=== PATIENT | female | born 1990 | race Caucasian/White ===

== ENCOUNTER 2017-10-26 04:56 | Emergency (ER) | payer OTHER ==
[~2017-10-26] VITALS: Ht 160 cm; Wt 61.3 kg
[2017-10-26 05:00] VITALS: BP 115/72
[2017-10-26] MEDS ORDERED: ALBUTEROL/IPRATROPIUM 2.5MG/0.5MG, 3 ML NPPB ONE (05:30)
[2017-10-26] MEDS ORDERED: ALBUTEROL/IPRATROPIUM 2.5MG/0.5MG, 3 ML ONE (05:33)
== END 2017-10-26 06:07 | disposition home or self-care (01) ==
LOC: ED 05:37
DX: J45.31 Mild persistent asthma with (acute) exacerbation (principal)
CPT/HCPCS: 93005; 94640; 99283; J7620

== ENCOUNTER 2019-01-02 19:55 | Outpatient (CLI) | payer OTHER ==
[2019-01-02 20:25] VITALS: BP 104/64
[2019-01-02 20:47] LABS: MICROSCOPIC INDICATED
== END 2019-01-02 22:10 | disposition home or self-care (01) ==
LOC: LDOP 19:55
PROVIDERS: ATTEND Obstetrics & Gynecology
DX: O26.892 Other specified pregnancy related conditions, second trimester (principal); R10.9 Unspecified abdominal pain; Z3A.21 21 weeks gestation of pregnancy
CPT/HCPCS: 59025; 76815; 81001; 87086; 99211; G0463

== ENCOUNTER 2019-03-25 12:49 | Outpatient (CLI) | payer OTHER ==
[~2019-03-25] VITALS: Ht 160 cm; Wt 65.0 kg
[2019-03-25 13:15] VITALS: BP 96/68
== END 2019-03-25 14:50 | disposition home or self-care (01) ==
LOC: LDOP 12:49
PROVIDERS: ATTEND Obstetrics & Gynecology
DX: O99.012 Anemia complicating pregnancy, second trimester (principal); D50.9 Iron deficiency anemia, unspecified; Z3A.21 21 weeks gestation of pregnancy
CPT/HCPCS: 59025; 96374; 99211; J1756; 96372; G0463

== ENCOUNTER 2019-03-27 13:36 | Outpatient (CLI) | payer OTHER ==
[~2019-03-27] VITALS: Ht 160 cm; Wt 65.3 kg
[2019-03-27 13:45] VITALS: BP 100/55
== END 2019-03-27 15:00 | disposition home or self-care (01) ==
LOC: LDOP 13:36
PROVIDERS: ATTEND Obstetrics & Gynecology
DX: O99.012 Anemia complicating pregnancy, second trimester (principal); D50.9 Iron deficiency anemia, unspecified; Z3A.21 21 weeks gestation of pregnancy
CPT/HCPCS: 59025; 96374; 99211; J1756; G0463

== ENCOUNTER 2019-03-28 13:38 | Outpatient (CLI) | payer OTHER ==
[~2019-03-28 13:38] MED LIST: OMEP20TA62 PO; PNV1TAB.5 PO
[2019-03-28] MEDS ORDERED: IRON SUCROSE COMPLEX 100MG/5ML IV ONE (14:00)
== END 2019-03-28 14:55 | disposition home or self-care (01) ==
LOC: LDOP 13:38
PROVIDERS: ATTEND Obstetrics & Gynecology
DX: O99.012 Anemia complicating pregnancy, second trimester (principal); D50.9 Iron deficiency anemia, unspecified; Z3A.21 21 weeks gestation of pregnancy
CPT/HCPCS: 59025; 96374; 99211; J1756; G0463

== ENCOUNTER 2019-03-29 13:33 | Outpatient (CLI) | payer OTHER ==
[~2019-03-29] VITALS: Ht 160 cm; Wt 66.3 kg
== END 2019-03-29 14:23 | disposition home or self-care (01) ==
LOC: INFUSION 13:33 → LDOP 14:23
PROVIDERS: ATTEND Obstetrics & Gynecology
DX: O99.012 Anemia complicating pregnancy, second trimester (principal); D50.9 Iron deficiency anemia, unspecified; Z3A.21 21 weeks gestation of pregnancy
CPT/HCPCS: 59025; 96374; 99211; J1756; G0463

== ENCOUNTER 2019-04-27 22:05 | Outpatient (CLI) | payer OTHER ==
[~2019-04-27] VITALS: Ht 160 cm; Wt 64.1 kg
[2019-04-27 22:10] VITALS: BP 111/71
== END 2019-04-28 00:05 | disposition home or self-care (01) ==
LOC: LDOP 22:05
PROVIDERS: ATTEND Obstetrics & Gynecology
DX: O26.893 Other specified pregnancy related conditions, third trimester (principal); R10.9 Unspecified abdominal pain; Z3A.37 37 weeks gestation of pregnancy
CPT/HCPCS: 59025; 81001; 99211; G0463